=== PATIENT | female | born 2005 | race Caucasian/White ===

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

== ENCOUNTER 2024-03-13 17:31 | Inpatient (IN) | payer OTHER ==
[~2024-03-13] VITALS: Ht 157.5 cm; Wt 57.0 kg
[2024-03-13] MEDS ORDERED: BUPR150T12 (17:43)
[2024-03-13 18:07] LABS: VENOUS BASE EXCESS 0.2 (-2.0-2.0); VENOUS HCO3 25.2 MMOL/L (23.0-27.0); VENOUS O2 SATURATION 87.9 % (60.0-80.0); VENOUS PARTIAL PRESSURE CO2 42.1 mmHg (38.0-50.0); VENOUS PARTIAL PRESSURE O2 52.7 mmHg (30.0-50.0); VENOUS PH 7.395 UNITS (7.330-7.430); VENOUS STANDARD HCO3 24.4 MMOL/L; VENOUS TOTAL CO2 26.5 MMOL/L (24.0-28.0)
[2024-03-13 18:07] LABS: BASO % 0.3 % (0.0-1.0); EOS # 0.2 10^3/uL (0.0-0.5); EOS % 1.6 % (0.0-3.0); HEMATOCRIT 40.4 % (36.0-47.0); HEMOGLOBIN 13.4 g/dl (12.0-15.5); LYMPH # 2.2 10^3/uL (1.5-5.0); MEAN CORPUSCULAR HEMOGLOBIN 31.8 pg (27.0-33.0); MEAN CORPUSCULAR HGB CONC 33.2 g/dl (32.0-36.5); MONO # 0.7 10^3/uL (0.0-0.8); MONO % 7.7 % (2.0-8.0); NEUTROPHILS # 6.3 10^3/uL (1.5-8.5); NEUTROPHILS % 66.8 % (36.0-66.0); PLATELET COUNT, AUTOMATED 301 10^3/uL (150-450); RED BLOOD COUNT 4.21 10^6/uL (4.00-5.40); WHITE BLOOD COUNT 9.5 10^3/uL (4.0-10.0)
[2024-03-13] MEDS: NS 1,000 ML IV SCH (18:12)
[2024-03-13] MEDS: CHARCOAL ACTIVATED LIQUID 25GM/120ML BTL PO ONE (18:12)
[2024-03-13 18:36] LABS: ETHYL ALCOHOL (ETHANOL) < 0.003 % (0.000-0.010)
[2024-03-13 18:38] LABS: ALBUMIN 4.1 G/DL (3.2-5.2); ALKALINE PHOSPHATASE 96 U/L (46-116); ALT/SGPT 11 U/L (7.0-40); AST/SGOT < 8 U/L (<34); BILIRUBIN,DIRECT 0.1 MG/DL (<0.4); BILIRUBIN,TOTAL 0.4 MG/DL (0.3-1.2); BLOOD UREA NITROGEN 8 MG/DL (9-23); CALCIUM LEVEL 8.9 MG/DL (8.5-10.1); CARBON DIOXIDE LEVEL 26 MMOL/L (20-31); CHLORIDE LEVEL 106 MMOL/L (98-107); CPK CREATINE PHOSPHOKINASE 61 U/L (34-145); GLUCOSE, FASTING 99 MG/DL (60-100); POTASSIUM SERUM 3.6 MMOL/L (3.5-5.1); SALICYLATE LEVEL < 3.0 MG/DL (<30); SODIUM LEVEL 140 MMOL/L (136-145)
[2024-03-13 18:40] LABS: THYROID STIMULATING HORMONE 0.817 uIU/ML (0.48-4.17)
[2024-03-13 18:46] LABS: AMPHETAMINES LEVEL URINE NEGATIVE (NEGATIVE); BARBITURATES URINE NEGATIVE (NEGATIVE); BENZODIAZEPINES URINE NEGATIVE (NEGATIVE); COCAINE METABOLITE URINE NEGATIVE (NEGATIVE)
[2024-03-13 18:47] LABS: CANNABINOIDS URINE NEGATIVE (NEGATIVE); METHADONE URINE NEGATIVE (NEGATIVE); OPIATES URINE NEGATIVE (NEGATIVE); PHENCYCLIDINE URINE NEGATIVE (NEGATIVE)
[2024-03-13 18:58] LABS: HCG, SERUM QUALITATIVE NEGATIVE (NEGATIVE)
[2024-03-14] MEDS ORDERED: ERGO500029 PO (00:03)
[2024-03-14] MEDS ORDERED: BUPR150T12 PO (00:03)
[2024-03-14] MEDS ORDERED: FERR325T82 PO (00:03)
[2024-03-14] MEDS ORDERED: HOME MED LIST COMPLETE! XX SCH (00:05)
[2024-03-14] MEDS ORDERED: MAALOX 30 ML SUSP *UDC PO PRN (14:00)
[2024-03-14] MEDS ORDERED: IBUPROFEN 400MG TAB PO PRN (14:00)
[2024-03-14] MEDS ORDERED: traZODone 50 MG TAB PO PRN (14:00)
[2024-03-14] MEDS ORDERED: ACETAMINOPHEN TAB 650MG DOSE (2X325MG) PO PRN (14:00)
[2024-03-14] MEDS ORDERED: MOM 30ML SUSPENSION UDC PO PRN (14:00)
[2024-03-14] MEDS ORDERED: diphenhydrAMINE 25MG CAP PO PRN (14:00)
[2024-03-14 16:25] VITALS: BP 141/89; TEMP 98.7; O2SAT 98
[2024-03-15 06:18] VITALS: BP 126/85; TEMP 97.9; O2SAT 99
[2024-03-15] MEDS: buPROPion **XL** TABLET 150MG (WELLBUTRIN XL) PO SCH (12:04)
[2024-03-15] MEDS: VITAMIN D 50,000 UNITS CAPSULE (ERGOCALCIFEROL 1.25MG) PO SCH (15:06)
[2024-03-15 16:36] VITALS: BP 112/76; TEMP 97.5; O2SAT 96
[2024-03-15] MEDS: FERROUS SULFATE 325MG TAB PO SCH (21:45)
[2024-03-15] MEDS: CARBAMIDE PEROXIDE 6.5% OTIC SOLN 15ML AD SCH (21:46)
[2024-03-16 05:54] VITALS: BP 127/69; TEMP 97.8; O2SAT 100
[2024-03-16 15:52] VITALS: BP 119/67; TEMP 98.2; O2SAT 100
[2024-03-17 06:56] VITALS: BP 139/76; TEMP 98.1; O2SAT 99
[2024-03-17] MEDS ORDERED: CARBOT AD (08:48)
== END 2024-03-17 11:58 | disposition home or self-care (01) | DRG 754 ==
LOC: M ED 17:31 → M ED INP 03-14 13:57 → M PSY 03-14 16:21
PROVIDERS: ADMIT Student in an Organized Health Care Education/Training Program; ATTEND Student in an Organized Health Care Education/Training Program
DX: F32.A Depression, unspecified (principal); E55.9 Vitamin D deficiency, unspecified; F43.10 Post-traumatic stress disorder, unspecified; Z62.810 Personal history of physical and sexual abuse in childhood; D50.9 Iron deficiency anemia, unspecified; Z88.0 Allergy status to penicillin; Z79.899 Other long term (current) drug therapy

== ENCOUNTER → 2024-04-11 | Outpatient (CLI) | payer OTHER ==
[~2024-04-11] MED LIST changes: +BUPR150T12; +BUPR150T12 PO; +CARBOT AD; +ERGO500029 PO; +FERR325T82 PO
== END ==
LOC: M WHC 07:15
PROVIDERS: ATTEND Nurse Practitioner Adult Health
DX: R10.31 Right lower quadrant pain (principal); Z97.5 Presence of (intrauterine) contraceptive device

== ENCOUNTER → 2024-04-24 | Outpatient (REF) | LOC: M EMP 11:56 | PROVIDERS: ATTEND Family Medicine | DX: Z11.52 Encounter for screening for COVID-19 (principal) ==

== ENCOUNTER → 2024-07-24 | Outpatient (CLI) | payer OTHER ==
[~2024-07-24] MED LIST changes: -CYCL5TAB PO; +CYCL5TAB4 PO
== END ==
LOC: M LAB 11:00
PROVIDERS: ATTEND Advanced Practice Midwife
DX: O20.9 Hemorrhage in early pregnancy, unspecified (principal); Z3A.00 Weeks of gestation of pregnancy not specified

== ENCOUNTER → 2024-07-26 | Outpatient (CLI) | payer OTHER | LOC: M LAB 10:49 | PROVIDERS: ATTEND Advanced Practice Midwife | DX: O20.9 Hemorrhage in early pregnancy, unspecified (principal) ==

== ENCOUNTER → 2024-08-01 | Outpatient (CLI) | payer OTHER | LOC: M LAB 12:09 | PROVIDERS: ATTEND Advanced Practice Midwife | DX: O20.9 Hemorrhage in early pregnancy, unspecified (principal); Z3A.00 Weeks of gestation of pregnancy not specified ==

== ENCOUNTER → 2024-09-15 | Outpatient (CLI) | payer OTHER | LOC: M PLALAB 14:16 | PROVIDERS: ATTEND Advanced Practice Midwife | DX: Z34.01 Encounter for supervision of normal first pregnancy, first trimester (principal) ==

== ENCOUNTER → 2024-10-11 | Outpatient (CLI) | payer OTHER ==
[2024-10-11 14:57] LABS: HEMATOCRIT 38.7 % (36.0-47.0); HEMOGLOBIN 13.4 g/dl (12.0-15.5); MEAN CORPUSCULAR HEMOGLOBIN 31.2 pg (27.0-33.0); MEAN CORPUSCULAR HGB CONC 34.6 g/dl (32.0-36.5); PLATELET COUNT, AUTOMATED 219 10^3/uL (150-450); WHITE BLOOD COUNT 8.2 10^3/uL (4.0-10.0)
[2024-10-11 15:55] LABS: HIV 1&2 SCREEN NEGATIVE (NEGATIVE)
[2024-10-11 16:03] LABS: HEPATITIS C VIRUS ABY INDEX < 0.02 INDEX (<0.8)
[2024-10-11 16:29] LABS: Trichomonas vaginalis (AMP) NOT DETECTED (NEGATIVE)
[2024-10-11 16:52] LABS: GC DNA AMPLIFICATION NEGATIVE (NEGATIVE)
== END ==
LOC: M LAB 14:28
PROVIDERS: ATTEND Advanced Practice Midwife
DX: Z34.81 Encounter for supervision of other normal pregnancy, first trimester (principal)

== ENCOUNTER → 2024-11-11 | Outpatient (CLI) | payer OTHER ==
[2024-11-11 16:36] LABS: GC DNA AMPLIFICATION NEGATIVE (NEGATIVE)
== END ==
LOC: M PLALAB 09:51
PROVIDERS: ATTEND Advanced Practice Midwife
DX: Z34.01 Encounter for supervision of normal first pregnancy, first trimester (principal)

== ENCOUNTER → 2024-12-24 | Outpatient (CLI) | payer OTHER | LOC: M WHC 11:25 | PROVIDERS: ATTEND Nurse Practitioner Family | DX: O35.14 Maternal care for (suspected) chromosomal abnormality in fetus, Turner Syndrome (principal); Z3A.26 26 weeks gestation of pregnancy ==

== ENCOUNTER → 2024-12-30 | Outpatient (CLI) | payer OTHER ==
[2024-12-30 13:43] LABS: HEMATOCRIT 38.7 % (36.0-47.0); HEMOGLOBIN 12.7 g/dl (12.0-15.5); MEAN CORPUSCULAR HEMOGLOBIN 31.4 pg (27.0-33.0); MEAN CORPUSCULAR HGB CONC 32.8 g/dl (32.0-36.5); MEAN CORPUSCULAR VOLUME 95.6 fl (80.0-96.0); PLATELET COUNT, AUTOMATED 233 10^3/uL (150-450); RED BLOOD COUNT 4.05 10^6/uL (4.00-5.40); WHITE BLOOD COUNT 10.1 10^3/uL (4.0-10.0)
[2024-12-30 14:18] LABS: GLUCOSE CHALLENGE TEST 1 HOUR 97 MG/DL (LESS THAN 140)
[2024-12-30 14:44] LABS: Trichomonas vaginalis (AMP) NOT DETECTED (NEGATIVE)
[2024-12-30 14:51] LABS: HIV 1&2 SCREEN NEGATIVE (NEGATIVE)
[2024-12-30 14:59] LABS: HEPATITIS C VIRUS ABY INDEX 0.02 INDEX (<0.8)
[2024-12-30 15:08] LABS: GC DNA AMPLIFICATION NEGATIVE (NEGATIVE)
== END ==
LOC: M PLALAB 10:26
PROVIDERS: ATTEND Obstetrics & Gynecology
DX: Z34.92 Encounter for supervision of normal pregnancy, unspecified, second trimester (principal)

== ENCOUNTER → 2025-01-15 | Outpatient (CLI) | payer OTHER | LOC: M WHC 07:20 | PROVIDERS: ATTEND Obstetrics & Gynecology | DX: O28.5 Abnormal chromosomal and genetic finding on antenatal screening of mother (principal); Z3A.29 29 weeks gestation of pregnancy ==

== ENCOUNTER 2025-04-03 18:52 | Inpatient (IN) | payer OTHER ==
[~2025-04-03] VITALS: Ht 157.5 cm; Wt 84.9 kg
[~2025-04-03 18:52] MED LIST changes: +MULTTAB20 PO; +PRIL20TA2 PO
[2025-04-03] MEDS ORDERED: ACET-907 PO (19:22)
[2025-04-03] MEDS ORDERED: HOME MED LIST COMPLETE! XX SCH (19:25)
[2025-04-03 19:30] VITALS: BP 125/74
[2025-04-03] MEDS ORDERED: TRANEXAMIC ACID INJection 1,000 MG in NS 100 ML IV PRN (19:35)
[2025-04-03] MEDS ORDERED: METHYLERGONOVINE MALEATE 0.2 MG/ML 1 ML VIAL IM PRN (19:35)
[2025-04-03] MEDS ORDERED: CARBOPROST TROMETHAMINE 250 MCG/ML AMP IM PRN (19:35)
[2025-04-03 19:55] LABS: PLATELET COUNT, AUTOMATED 212 10^3/uL (150-450)
[2025-04-03 20:45] LABS: HIV 1&2 SCREEN NEGATIVE (NEGATIVE)
[2025-04-03 20:52] LABS: HEPATITIS C VIRUS ABY INDEX < 0.02 INDEX (<0.8)
[2025-04-03] MEDS: miSOPROStol 50 MCG 1/2 TABLET PO SCH (21:05)
[2025-04-03 21:06] VITALS: BP 112/67
[2025-04-03 23:22] VITALS: BP 118/74
[2025-04-04] VITALS (45 sets, daily range): BP systolic 97–146; BP diastolic 52–94; O2SAT 95
[2025-04-04] MEDS: ceFAZolin SOD 2 GM IV ONCE IV ONE (10:38)
[2025-04-04] MEDS: LACTATED RINGER'S 1000 ML IV STA (11:50)
[2025-04-04] MEDS ORDERED: EPIDURAL/PCA KEYS XX PRN (12:40)
[2025-04-04] MEDS ORDERED: NALOXONE INJ 0.4 MG/1 ML VIAL IV PRN (12:40)
[2025-04-04] MEDS ORDERED: diphenhydrAMINE 50 MG/ML VIAL IV PRN (12:40)
[2025-04-04] MEDS ORDERED: ONDANSETRON 4MG 2ML VIAL IV PRN (12:40)
[2025-04-04] MEDS ORDERED: LR 500 ML IV PRN (12:40)
[2025-04-04] MEDS: FENTANYL/ROPIVACAINE/NACL BAG 100 ML EPIDURAL SCH (15:14)
[2025-04-04] MEDS ORDERED: OXYTOCIN DRIP 30 UNITS in IV 1 EA IV SCH (15:20)
[2025-04-04] MEDS: ceFAZolin SOD 1 GM in DEXTROSE 5% (D5W) ADV/MINI-BAG 50 ML IV SCH (19:03)
[2025-04-04] MEDS: OXYTOCIN DRIP 30 UNITS in IV 1 EA IV PRN (19:48)
[2025-04-04] MEDS: LIDOCAINE 1% MDV 20 ML VIAL INFIL PRN (19:48)
[2025-04-04 19:51] LABS: CORD GAS ABE A -6.9; CORD GAS ABE V -7.1; CORD GAS HCO3 A 18.6 MMOL/L; CORD GAS HCO3 V 18.1 MMOL/L; CORD GAS O2 SAT A 76.9 %; CORD GAS O2 SAT V 80.1 %; CORD GAS PCO2 A 38.0 mmHg; CORD GAS PCO2 V 36.5 mmHg; CORD GAS PH A 7.308 UNITS; CORD GAS PH V 7.313 UNITS; CORD GAS PO2 A 36.4 mmHg; CORD GAS PO2 V 40.3 mmHg; CORD GAS SBC A 18.5 MMOL/L; CORD GAS SBC V 18.4 MMOL/L; CORD GAS TCO2 A 19.8 MMOL/L; CORD GAS TCO2 V 19.2 MMOL/L
[2025-04-04] MEDS ORDERED: ACETAMINOPHEN 325 MG TAB PO PRN (20:10)
[2025-04-04] MEDS ORDERED: IBUPROFEN 600 MG TAB PO PRN (20:10)
[2025-04-04] MEDS ORDERED: METHYLERGONOVINE MALEATE 0.2 MG TAB PO PRN (20:10)
[2025-04-04] MEDS ORDERED: DOCUSATE SODIUM 100 MG CAPSULE PO PRN (20:10)
[2025-04-04] MEDS ORDERED: RHOGAM 300MCG (1500IU) INJ IM SCH (20:10)
[2025-04-04] MEDS: ACETAMINOPHEN 500 MG TAB PO PRN (22:13)
[2025-04-04] MEDS: IBUPROFEN 800 MG TAB PO PRN (22:14)
[2025-04-05 06:00] VITALS: BP 115/55; O2SAT 98
[2025-04-05] MEDS: PRENATAL VITAMINS CHEWABLE TABLET PO SCH (09:15)
[2025-04-05 18:25] VITALS: BP 110/61; O2SAT 98
[2025-04-06 05:38] VITALS: BP 116/64; O2SAT 98
[2025-04-06] MEDS: MEASLES,MUMPS,RUBELLA VACCINE INJ (MMR-II) SC.IMMUN ONE (09:20)
[2025-04-06] MEDS ORDERED: IBUP80TA PO (10:44)
[2025-04-06] MEDS: DIBUCAINE 1% OINTMENT 30 GM TOP PRN (11:14)
== END 2025-04-06 15:34 | disposition home or self-care (01) | DRG 807 ==
LOC: M LDI 18:52 → M OBS 04-04 22:54
PROVIDERS: ADMIT Advanced Practice Midwife; ATTEND Advanced Practice Midwife
PROC: 3E0DXGC Introduction of Other Therapeutic Substance into Mouth and Pharynx, External Approach (ICD-10-PCS; 2025-04-03)
PROC: 10E0XZZ Delivery of Products of Conception, External Approach (ICD-10-PCS; principal; 2025-04-04)
PROC: 10907ZC Drainage of Amniotic Fluid, Therapeutic from Products of Conception, Via Natural or Artificial Opening (ICD-10-PCS; 2025-04-04)
PROC: 0HQ9XZZ Repair Perineum Skin, External Approach (ICD-10-PCS; 2025-04-04)
DX: O48.0 Post-term pregnancy (principal); Z37.0 Single live birth; Z3A.40 40 weeks gestation of pregnancy; O99.824 Streptococcus B carrier state complicating childbirth; O69.82X0 Labor and delivery complicated by other cord entanglement, without compression, not applicable or unspecified; O77.0 Labor and delivery complicated by meconium in amniotic fluid; O70.0 First degree perineal laceration during delivery

== ENCOUNTER → 2025-06-03 | Outpatient (REF) | payer OTHER ==
[~2025-06-03] MED LIST changes: +ACET-907 PO; +CARB15DR25 AD; -CARBOT AD; +IBUP80TA PO
[2025-06-03 17:18] LABS: AMORPHOUS SEDIMENT LARGE (NEGATIVE); APPEARANCE, URINE TURBID (CLEAR); BACTERIA, URINE AUTO NEGATIVE (NEGATIVE); BILIRUBIN, URINE AUTO NEGATIVE (NEGATIVE); BLOOD, URINE BLOOD NEGATIVE (NEGATIVE); GLUCOSE, URINE (UA) AUTO NEGATIVE (NEGATIVE); KETONE, URINE AUTO 1+ mg/dL (NEGATIVE); LEUKOCYTE ESTERASE, URINE AUTO NEGATIVE (NEGATIVE); MUCUS, URINE SMALL (NEGATIVE); NITRITE, URINE AUTO NEGATIVE (NEGATIVE); PROTEIN, URINE AUTO NEGATIVE (NEGATIVE); RBC, URINE AUTO 4 /HPF (0-3); SPECIFIC GRAVITY URINE AUTO 1.031 (1.002-1.035); SQUAMOUS EPITHELIAL CELL UR AU 4 /HPF (0-6); UROBILINOGEN, URINE AUTO 2.0 mg/dL (0.0-2.0); WBC, URINE AUTO 0 /HPF (0-3)
== END ==
LOC: M SFHCWAGY 16:49
PROVIDERS: ATTEND Specialist
DX: R30.0 Dysuria (principal)

== ENCOUNTER → 2025-09-08 | Outpatient (CLI) | payer OTHER ==
[2025-09-08 15:45] LABS: BASO # 0.1 10^3/uL (0.0-0.2); BASO % 0.5 % (0.0-1.0); EOS # 0.2 10^3/uL (0.0-0.5); EOS % 1.5 % (0.0-3.0); LYMPH # 3.5 10^3/uL (1.5-5.0); LYMPH % 29.5 % (24.0-44.0); MONO # 0.8 10^3/uL (0.0-0.8); MONO % 6.7 % (2.0-8.0); NEUTROPHILS # 7.2 10^3/uL (1.5-8.5); NEUTROPHILS % 61.5 % (36.0-66.0); PLATELET COUNT, AUTOMATED 321 10^3/uL (150-450)
[2025-09-08 16:21] LABS: IRON (FE) 170.0 UG/DL (50-170); PERCENT SATURATION 45.8 % (13.2-45.0)
== END ==
LOC: M PLALAB 13:31
PROVIDERS: ATTEND Advanced Practice Midwife
DX: Z86.2 Personal history of diseases of the blood and blood-forming organs and certain disorders involving the immune mechanism (principal)